=== PATIENT | male | born 1965 | race Hispanic/Latino ===

== ENCOUNTER 2017-05-28 15:19 | Outpatient (CLI) | payer OTHER | END 2017-05-28 15:20 | disposition home or self-care (01) | LOC: DTY/OP 15:19 | PROVIDERS: ATTEND Physician Assistant | DX: E11.9 Type 2 diabetes mellitus without complications (principal) | CPT/HCPCS: 97802 ==

== ENCOUNTER 2017-11-07 07:33 | Outpatient (CLI) | payer OTHER | END 2017-11-07 07:34 | disposition home or self-care (01) | LOC: CP 07:33 | PROVIDERS: ATTEND Physician Assistant | DX: R07.89 Other chest pain (principal) | CPT/HCPCS: 94060; 94727 ==

== ENCOUNTER 2018-09-30 12:59 | Emergency (ER) | payer OTHER ==
[2018-09-30] MEDS ORDERED: Adacel (T-DAP) 0.5 ML SYRINGE ONE (14:21)
[2018-09-30] MEDS ORDERED: HYDROcodone/Acetaminophen 10/325 mg Tablet ONE (14:21)
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
== END 2018-09-30 16:00 | disposition home or self-care (01) ==
LOC: ERS 12:59
DX: S43.402A Unspecified sprain of left shoulder joint, initial encounter (principal); M54.2 Cervicalgia; I10 Essential (primary) hypertension; E11.9 Type 2 diabetes mellitus without complications; Z79.84 Long term (current) use of oral hypoglycemic drugs; Z79.899 Other long term (current) drug therapy; V49.9XXA Car occupant (driver) (passenger) injured in unspecified traffic accident, initial encounter
CPT/HCPCS: 69200; 70450; 72072; 72125; 90471; 90715

== ENCOUNTER 2019-04-14 16:07 | Outpatient (CLI) | payer OTHER ==
--- NOTE | 2019-04-14 16:44 | RAD ---
Left elbow 4 views HISTORY: Elbow pain. Recent fall and injury. FINDINGS: Linear dystrophic calcification lies immediately medial to the medial humeral epicondyles. Radiocapitellar alignment is maintained. Mild osteophytosis. Small triceps enthesophyte. No acute fracture, dislocation, or fluid distention of the joint capsule. IMPRESSION: Mild osteoarthritic changes and other chronic-type findings. No acute osseous abnormaliti es are demonstrated.
--- NOTE | 2019-04-14 16:47 | RAD ---
XR Forearm Lt 2 View STANDARD History: Forearm pain. Comparison: None Findings: No acute fracture or malalignment. Enthesopathic change of the common extensor and flexor t endons. Impression: No acute osseous abnormality.
== END 2019-04-14 16:08 | disposition home or self-care (01) ==
LOC: BICRAD 16:07
PROVIDERS: ATTEND Family Medicine
DX: M79.632 Pain in left forearm (principal); M25.522 Pain in left elbow; M19.022 Primary osteoarthritis, left elbow

== ENCOUNTER 2024-12-29 01:00 | Emergency (ER) | payer OTHER ==
[2024-12-29 01:39] LABS: Hematocrit 46.3 % (42.0-52.0); Hemoglobin 15.5 g/dL (14.0-18.0); Mean Corpuscular Hemoglobin 29.9 pg (27.0-31.0); Mean Corpuscular Volume 89.2 fL (78.0-98.0); Platelet Count 163 10x3/uL (130-400); Red Blood Cell (RBC) Count 5.19 mill/uL (4.70-6.10); White Blood Cell (WBC) Count 6.40 10x3/uL (4.8-10.8)
[2024-12-29 01:44] LABS: ALT (SGPT) 25 U/L (Less than 45); AST (SGOT) 29 U/L (11-34); Albumin 3.8 g/dL (3.1-4.5); Alkaline Phosphatase 70 U/L (40-110); Anion Gap 16 mmol/L (10-20); BUN (Urea Nitrogen) 14 mg/dL (8.4-25.7); Bilirubin, Total 0.4 mg/dL (0.3-1.2); Calc. Creatinine Clearance 0 mL/min (70-130); Calcium 8.7 mg/dL (7.8-10.44); Carbon Dioxide 18 mmol/L (22-29); Chloride 109 mmol/L (98-107); Globulin 3.2 g/dL (2.4-3.5); Glucose 100 mg/dL (70-105); Potassium 3.4 mmol/L (3.5-5.1); Sodium 140 mmol/L (136-145)
[2024-12-29 06:23] LABS: Platelet Adequacy Comment Platelets Normal; RBC Morphology Within Normal Limits; Smudge Cells 20.0 %
== END 2024-12-29 07:49 | disposition home or self-care (01) ==
LOC: ERS 01:00
DX: R07.9 Chest pain, unspecified (principal); I10 Essential (primary) hypertension; E11.9 Type 2 diabetes mellitus without complications
CPT/HCPCS: 36416; 71045; 80053; 84484; 85025; 93005